=== PATIENT | female | born 1960 | race Caucasian/White ===

== ENCOUNTER 2025-05-01 11:45 | Emergency (ER) | payer BC | END 2025-05-01 15:46 | disposition home or self-care (01) | LOC: MW.ED 11:45 | DX: M25.571 Pain in right ankle and joints of right foot (principal); Z79.899 Other long term (current) drug therapy; Z88.0 Allergy status to penicillin; Z88.1 Allergy status to other antibiotic agents; W01.0XXA Fall on same level from slipping, tripping and stumbling without subsequent striking against object, initial encounter | CPT/HCPCS: 73610-26-RT; 73610-RT; 73630-26-RT; 73630-RT; 99283; A9270-GY ==